=== PATIENT | male | born 1985 | race Caucasian/White ===

== ENCOUNTER 2020-06-29 08:28 | Emergency (ER) | payer SELFPAY ==
[2020-06-29 08:34] VITALS: BP 161/90; PULSE 94; RESP 20; TEMP 36.8; O2SAT 96
--- NOTE | 2020-06-29 08:40 | ED.GENADUL_ITS ---
Discharge Plan Disposition Patient Disposition: HOME Condition: Stable Discharge Details Chief Complaint: Laceration Clinical Impression: Finger fracture, left, Laceration of finger of left hand Primary Care Provider: José Manuel Kinney ED Provider: Jose Felipe Home Meds and New Rx's Prescriptions: New cephalexin 500 mg capsule 500 mg PO TID 3 Days Qty: 9 RF: 0 Continued citalopram 20 mg tablet 20 mg PO DAILY RF: 0 omeprazole 20 mg Tablet,Delayed Release (Dr/Ec) 20 mg PO DAILY RF: 0 Discharge Instructions Instructions: Finger Fracture (ED), Finger Laceration (ED) Additional Instructions: Keep hand elevated above the level of the heart to reduce pain and swelling. Leave dressing and splint in place until you are seen in orthopedic clinic. As we discussed your name will go on the orthopedic follow-up list. Please call the clinic at [phone] for an appointment time. Take Keflex as prescribed. May use Tylenol and/or ibuprofen as needed for pain. You may apply ice through the splint to reduce discomfort as well. Return if you develop a fever, redness, discharge from the wound or any other acute concern. Medical Decision Making 35-year-old male who had his left long finger and index finger caught under wood in a pinching fashion last night at 11 PM. He did irrigated at home and dress it, now with pain, swelling, subungual hematoma and small laceration to the volar surface of middle phalanx the left long finger. Tender overlying the distal phalanx. Read for x-ray. He has a comminuted distal phalanx fracture of the long finger. The wound was liberally irrigated, he underwent a digital block, the laceration was repaired with interrupted sutures, splinted. The subungual hematoma was trephinated. I also trephinated subungual hematoma of the index finger. We will have him follow-up in orthopedics for recheck. HPI General Mode of arrival: ambulatory . Date/Time Provider Initiated Documentation: 06/29/20 08:29 . Limitations to Documentation: no limitations . Information obtained by: patient . History of Present Illness 35 year old M presents to the emergency department with the chief complaint of Left long finger injury/laceration, described as moderate, Quality is described as du ll and constant, and is localized to the left and upper extremity. Patient reports no radiation. Patient started experiencing this hour(s) and it has been constant. No relieving factors improve symptom(s), No exacerbating factors reported . Patient notes other (No other injury, no numbness. Tetanus 5 years ago). Patient did receive the following treatments prior to arrival, none Related Data Home Medications Medication Instructions Recorded Confirmed cephalexin 500 mg PO TID 3 Days #9 cap 06/29/20 citalopram 20 mg PO DAILY 06/29/20 06/29/20 omeprazole 20 mg PO DAILY 06/29/20 06/29/20 Previous Rx's Medication Instructions Recorded cephalexin 500 mg PO TID 3 Days #9 cap 06/29/20 Allergies Allergy/AdvReac Type Severity Reaction Status Date / Time No Known Allergies Allergy Unverified 06/29/20 08:38 General Stated Complaint: Laceration AUGIE: 4 Review of Systems Narrative: No other injury. No numbness or tingling. 4 systems reviewed and otherwise negative [facility] Social History Smoking/Tobacco Use Status: Current every day Tobacco Type: smokeless tobacco Alcohol Intake: never Drug use: Never Substance use type: does not use Do you feel safe at home: Yes Do you feel safe in your relationship?: Yes Exam Narrative Exam Narrative: GEN: awake, alert, oriented 3. Pleasant, well groomed, interactive. HEAD: Normocephalic, atraumatic EXT: Full ROM, left long finger with palmar laceration approximately 2 cm, obliquely oriented, overlying middle phalanx. Long finger subungual hematoma and distal swelling with ecchymosis. Capillary refill is approximately 2 seconds and sensation is intact. Small subungual hematoma on left index finger. Neuro: Grossly normal neurologic exam, conversant, interactive. Psych: Speech fluent, thoughts congruent, affect normal Course Vital Signs Vital signs: Vital Signs Temperature 36.8 C 06/29/20 08:34 Pulse 94 H 06/29/20 08:34 Respiratory Rate 20 06/29/20 08:34 Blood Pressure 161/90 H 06/29/20 08:34 Pulse Oximetry 96 06/29/20 08:34 Temperature 36.8 C 06/29/20 08:34 Temperature Source Skin 06/29/20 08:34 Pulse 94 H 06/29/20 08:34 Respiratory Rate 20 06/29/20 08:34 Blood Pressure 161/90 H 06/29/20 08:34 Blood Pressure Position Sitting 06/29/20 08:34 Pulse Oximetry 96 06/29/20 08:34 Oxygen Delivery Method Room Air 06/29/20 08:34 Oxygen Flow Rate 0 06/29/20 08:34 Pain Level 4 06/29/20 08:34 Procedures Laceration Laceration 1: Site: hand Side (If applicable): left Size (cm): 2.5 Description: irregular Depth: simple, single layer Local Anesthetic: Lidocaine 1% Pre-repair: wound explored, irrigated extensively and deep structures intact Skin layer closed with: nylon Size (cm): 4-0 Number of sutures: 5 Nail Trephination Time out: Yes Location (finger): left, index and middle Method of drainage: nail cautery
--- NOTE | 2020-06-29 08:55 | DI.RAD_ITS ---
EXAM: XR FINGER LT MIDDLE CLINICAL HISTORY: palmar trauma, pain, lac TECHNIQUE: COMPARISON: No exams were available for comparison FINDINGS: Three views were obtained. There is severely comminuted fracture of the distal phalanx of the middle finger which extends through the proximal articular surface. There is moderate displacement. No ot her fracture seen. IMPRESSION:
--- NOTE | 2020-06-29 09:03 | DI.VRAD_ITS ---
PROCEDURE INFORMATION: Exam: XR Left Finger(s) Exam date and time: 06/29/2020 8:56 AM Age: 35 years old Clinical indication: Pain; Finger(s); Patient HX: Left middle finger trauma, lac, palmar trauma. TECHNIQUE: Imaging protocol: XR Left fingers. Views: Minimum 2 views. COMPARISON: No relevant prior studies available. FINDINGS: Comminuted fracture of the distal phalanx of the 3rd digit. Some of the fracture components extend into the distal interphalangeal joint. Markedly displaced volar fracture fragment. No other fractures are visualized. Soft tissue swelling about the distal 3rd digit. IMPRESSION: Comminuted fracture of the distal phalanx of the 3rd digit. Some of the fracture components extend into the distal interphalangeal joint. Markedly displaced volar fracture fragment. Dictated and Authenticated by: Brandon Fay MD. Ordering:NITA Garcia MD
[2020-06-29] MEDS: Cephalexin 500 MG CAP PO (09:28)
== END 2020-06-29 09:32 | disposition home or self-care (01) ==
PROVIDERS: Emergency Provider Emergency Medicine; PCP Nurse Practitioner Family
DX: S67.193A Crushing injury of left middle finger, initial encounter (principal); S62.633A Displaced fracture of distal phalanx of left middle finger, initial encounter for closed fracture; S61.213A Laceration without foreign body of left middle finger without damage to nail, initial encounter; S60.122A Contusion of left index finger with damage to nail, initial encounter; W23.0XXA Caught, crushed, jammed, or pinched between moving objects, initial encounter
CPT/HCPCS: 11740; 12001; 26750; 73140

== ENCOUNTER 2020-06-29 13:35 | Emergency (ER) | payer SELFPAY ==
[2020-06-29 13:40] VITALS: BP 115/61; PULSE 87; RESP 18; TEMP 37.4; O2SAT 98
--- NOTE | 2020-06-29 13:47 | ED.GENADUL_ITS ---
Discharge Plan Disposition Patient Disposition: HOME Condition: Good Discharge Details Chief Complaint: Orthopedic Clinical Impression: Ankle sprain Primary Care Provider: José Maunel Kinney ED Provider: Victoria Diaz Home Meds and New Rx's Prescriptions: Continued citalopram 20 mg tablet 20 mg PO DAILY RF: 0 omeprazole 20 mg Tablet,Delayed Release (Dr/Ec) 20 mg PO DAILY RF: 0 cephalexin 500 mg capsule 500 mg PO TID 3 Days Qty: 9 RF: 0 Discharge Instructions Instructions: Ankle Sprain (ED) Additional Instructions: Encourage rest, ice, elevation. Tylenol and ibuprofen as needed for discomfort. Please continue with ankle brace for at least the next 2 weeks. If pain persists over the next 2 weeks, please follow-up with primary care. If you develop any new or worsening symptoms please seek care urgently once again. Please avoid activities that cause increased discomfort. Referrals: José Manuel Kinney, PROMOTIONAL MODEL [Primary Care Provider] - Medical Decision Making Patient is a pleasant 35-year-old gentleman presenting today with chief complain t of left ankle pain. Patient was seen here this morning. Suffered a open finger fracture. States that he returned to work and was just walking around the job site when he tripped and injured left ankle. Spoke with internal rotation injury and is endorsing pain over the lateral malleolus at this point. Denies any numbness or tingling. Has not been able to weight-bear secondary to pain since that time. Has been icing and elevate the area. No previous surgeries or injuries to this ankle. Has been icing the area since the injury. On exam, patient does appear uncomfortable. He needs to hop into the room. Sensation is intact. No pain over the proximal fibula. No pain over the proximal fifth metatarsal. He is tender over the lateral malleolus. No pain over the Achilles tendon, no palpable defect. Patient is of swelling and ecchymosis. Will evaluate with x-ray imaging. Patient declines any analgesics at this point. He is elevating and icing. FINDINGS: Bones/joints: Normal. Soft tissues: Normal. IMPRESSION: No acute findings. Discussed these findings with the patient. Plan fit with an ankle brace. Encourage rest, ice, elevation. Tylenol and ibuprofen as needed for discomfort. Advise follow-up with primary care in 2 weeks if pain is persisting. Patient attempted to ambulate without crutches with the brace on and that he has fairly severe discomfort. We will give crutches to help with discomfort. Follow-up with primary care in 2 weeks for reevaluation if pain persist. If he develops any new or worsening symptoms he will seek care urgently once again. Questions concerns were addressed and he is in agreement this plan. HPI General Mode of arrival: wheelchair . Date/Time Provider Initiated Documentation: 06/29/20 13:47 . Limitations to Documentation: no limitations . Information obtained by: patient and RN notes reviewed . History of Present Illness 35 year old M presents to the emergency department with the chief complaint of left ankle pain, described as severe, with intensity rated at 10. Quality is described as stabbing, and is localized to the left and lower extremity. Patient reports no radiation. Patient started experiencing this minute(s) and it has been now resolved (resolves with nonweightbearing). Immobilization improves symptom(s), Movement worsens symptoms . Patient notes no other symptoms.. Patient did receive the following treatments prior to arrival, none Related Data Home Medications Medication Instructions Recorded Confirmed cephalexin 500 mg PO TID 3 Days #9 cap 06/29/20 06/29/20 citalopram 20 mg PO DAILY 06/29/20 06/29/20 omeprazole 20 mg PO DAILY 06/29/20 06/29/20 Previous Rx's Medication Instructions Recorded cephalexin 500 mg PO TID 3 Days #9 cap 06/29/20 Allergies Allergy/AdvReac Type Severity Reaction Status Date / Time No Known Allergies Allergy Unverified 06/29/20 08:38 General Stated Complaint: Orthopedic AUGIE: 4 Review of Systems Constitutional Constitutional: Reports as per HPI, Denies chills, Denies fever(s), Denies headache(s) and Denies weakness ENT Ears, Nose, Mouth, and Throat: Denies headache(s) Cardiovascular Cardiovascular: Reports as per HPI Respiratory Respiratory: Reports as per HPI and Denies cough Musculoskeletal Musculoskeletal: Reports as per HPI and Denies tingling Integumentary/Breasts Skin/Breast: Reports as per HPI, Denies rash and Denies wounds Neurologic Neurologic: Reports as per HPI, Denies headache(s), Denies tingling, Denies paresthesias and Denies weakness [facility] Social History Smoking/Tobacco Use Status: Current every day Tobacco Type: smokeless tobacco Alcohol Intake: never Drug use: Never Substance use type: does not use Do you feel safe at home: Yes Do you feel safe in your relationship?: Yes Exam Const General: cooperative, healthy appearing, uncomfortable, no acute distress, well developed and well groomed Nutritional Appearance: well nourished and overweight Orientation: alert and awake Resp Effort & Inspection: normal respiratory effort, able to speak in complete sentences and no respiratory distress Cardio Rate: regular rate Rhythm: regular rhythm Skin General skin exam: no rashes or lesions noted Lesions: no lesions Rashes: no rashes Trauma: no lacerations or abrasions Neuro General: patient alert and patient awake Cognition: normal cognition Speech: speech normal Gait: antalgic (hops into the room) Motor: muscle tone normal throughout Sensory Exam: no sensory deficits noted Extrem General: capillary refill normal and abnormal gait Right lower extremity: full ROM, normal capillary refill, knee Details: normal to inspection; no tenderness (no pain over proximal fibula), lower leg Details: normal to inspection; no tenderness, no localized swelling, no palpable cords and no ecchymosis, ankle Details: tenderness Location: of the lateral malleolus, swelling Details: laterally, normal ROM and ecchymosis (inferior to lateral malleolus); no unusual warmth, no abrasions, no lacerations, no crepitus and achilles tendon exam normal and foot Details: normal capillary refill, toes with normal ROM, no edema, vascular exam Details: dorsalis pedis pulse present, posterior tibial pulse present and normal capillary refill and motor-sensory exam Details: light-touch normal; no tenderness, no unusual warmth, no ecchymosis and no crepitus; abnormal to inspection Psych Appearance: grossly normal and well kempt Mental Status: mental status grossly normal Speech and Movement: speech and movement normal Course Vital Signs Vital signs: Pain Level 10 06/29/20 13:40 Comment 06/29/20 13:40
--- NOTE | 2020-06-29 14:08 | DI.RAD_ITS ---
EXAM: XR ANKLE LT COMPLETE CLINICAL HISTORY: lateral pain after rotational injury TECHNIQUE: COMPARISON: No exams were available for comparison FINDINGS: Three views were obtained. The ankle mortise is well maintained. There are small osteophytes associ ated with tibiotalar and talofibular joints. There is a small osteophyte at the Achilles attachment on the calcaneus. There is no evidence of acute fracture. IMPRESSION:
--- NOTE | 2020-06-29 14:30 | DI.VRAD_ITS ---
PROCEDURE INFORMATION: Exam: XR Left Ankle Exam date and time: 06/29/2020 2:06 PM Age: 35 years old Clinical indication: Patient HX: Left ankle pain. TECHNIQUE: Imaging protocol: XR Left ankle. Views: 3 or more views. COMPARISON: No relevant prior studies available. FINDINGS: Bones/joints: Normal. Soft tissues: Normal. IMPRESSION: No acute findings. Dictated and Authenticated by: Brandon Fay MD. Ordering:JAYLA Kessler MD
== END 2020-06-29 14:50 | disposition home or self-care (01) ==
PROVIDERS: Emergency Provider Physician Assistant; PCP Nurse Practitioner Family
DX: S93.402A Sprain of unspecified ligament of left ankle, initial encounter (principal); X50.9XXA Other and unspecified overexertion or strenuous movements or postures, initial encounter
CPT/HCPCS: 29515; 99283; 73610; E0114; L1902

== ENCOUNTER 2020-07-04 08:00 | Outpatient (REF) | payer SELFPAY ==
[2020-07-04 14:21] LABS: HCT 44.3 % (40.0-50.0); HGB 14.5 g/dL (13.5-17.5); MCH 27.3 pg (27.0-33.0); MCHC 32.7 % (32.0-36.0); MCV 83.4 fL (80-95); MPV 9.6 fL (8.0-11.0); Platelet Count 301 10^3/uL (130-400); RBC 5.31 10^6/uL (4.36-5.78); RDW 12.2 % (11.8-14.1); RDW-SD 37.1 fL; WBC 7.41 10^3/uL (4.4-10.8)
[2020-07-04 14:29] LABS: ALT 41 U/L (16-63); AST 19 U/L (15-37); Albumin 3.9 g/dL (3.4-5.0); Alkaline Phosphatase 78 U/L (46-116); Anion Gap 8.7 mmol/L (3-11); BUN 18 mg/dL (7-18); Bilirubin, Total 0.4 mg/dL (0.2-1.0); CO2 29.3 mmol/L (21.0-32.0); CREATININE 1.03 mg/dL (0.70-1.30); Calcium 9.6 mg/dL (8.5-10.1); Calculated LDL 108 mg/dL (<100); Chloride 103 mmol/L (98-107); Cholesterol 173 mg/dL (<200); Glucose 97 mg/dL (74-106); HDL Cholesterol 25 mg/dL (40-60); Potassium 4.6 mmol/L (3.5-5.1); Sodium 141 mmol/L (136-145); Total Protein 7.5 g/dL (6.4-8.2); Triglyceride 202 mg/dL (<150)
== END 2020-07-04 08:20 ==
LOC: NCHCN 08:00
PROVIDERS: PCP Nurse Practitioner Family; Visit Provider Nurse Practitioner Family
DX: Z00.00 Encounter for general adult medical examination without abnormal findings (principal)
CPT/HCPCS: 80053; 80061; 85027

== ENCOUNTER 2021-05-22 10:40 | Emergency (ER) | payer SELFPAY ==
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
[2021-05-22 10:45] VITALS: BP 129/78; PULSE 78; RESP 20; TEMP 36.8; O2SAT 96
[2021-05-22] MEDS: Normal Saline 1,000 ML 1000 ML IV (11:25)
[2021-05-22] MEDS: Normal Saline Flush 10 ML SYR IVP (11:25)
[2021-05-22] MEDS: Ketorolac 30 MG/ML VIAL IVP (11:26)
[2021-05-22 11:35] LABS: Abs Immature Grans 0.02 10^3/uL (0.0-0.06); Absolute Basophil Count 0.04 10^3/uL (0.0-0.2); Absolute Eosinophil Count 0.06 10^3/uL (0.0-0.7); Absolute Lymphocyte Count 1.28 10^3/uL (1.2-3.4); Absolute Neutrophil Count 9.41 10^3/uL (1.2-6.7); Basophils % 0.4; Eosinophils % 0.5; HCT 42.5 % (40.0-50.0); Immature Grans % 0.2; Lymphocytes % 11.4; MCH 27.4 pg (27.0-33.0); MCHC 32.9 % (32.0-36.0); MCV 83.2 fL (80-95); MPV 9.4 fL (8.0-11.0); Monocytes % 3.6; Neutrophils % 83.9; Nucleated RBC 0 %; Platelet Count 274 10^3/uL (130-400); RBC 5.11 10^6/uL (4.36-5.78); RDW 12.1 % (11.8-14.1); RDW-SD 36.8 fL; WBC 11.21 10^3/uL (4.4-10.8)
[2021-05-22] MEDS: ACETAMINOPHEN 1,000 MG/100 ML BTL 400 MG IVPB (11:53)
[2021-05-22 11:57] LABS: ALT 37 U/L (16-63); AST 24 U/L (15-37); Albumin 3.9 g/dL (3.4-5.0); Alkaline Phosphatase 71 U/L (46-116); Anion Gap 7.4 mmol/L (3-11); BUN 17 mg/dL (7-18); Bilirubin, Total 0.4 mg/dL (0.2-1.0); CO2 29.6 mmol/L (21.0-32.0); CREATININE 0.9 mg/dL (0.70-1.30); Chloride 104 mmol/L (98-107); Glucose 102 mg/dL (74-106); Lipase 70 U/L (73-393); Potassium 4.3 mmol/L (3.5-5.1); Sodium 141 mmol/L (136-145); Total Protein 7.5 g/dL (6.4-8.2)
[2021-05-22 13:58] VITALS: BP 129/78; PULSE 78; RESP 20; TEMP 36.8; O2SAT 96
== END 2021-05-22 14:00 | disposition home or self-care (01) ==
PROVIDERS: Emergency Provider Physician Assistant; PCP Nurse Practitioner Family
DX: R11.10 Vomiting, unspecified (principal)
CPT/HCPCS: 80053; 83690; 96361; 96365; 96368; 96375; 99284; 85025; 99283; J0131; J1885

== ENCOUNTER 2025-03-14 08:17 | Emergency (ER) | payer SELFPAY ==
[2025-03-14 08:20] VITALS: BP 156/77; PULSE 103; RESP 22; TEMP 38.1; O2SAT 97
--- NOTE | 2025-03-14 08:30 | DI.RAD_ITS ---
Exam(s) XR CHEST 2V PA LATERAL EXAM: XR CHEST 2V PA LATERAL CLINICAL HISTORY: cough, crackles RLL. TECHNIQUE: 2D digital imaging was performed. COMPARISON: No exams were available for comparison FINDINGS: 2 views: Heart size is normal. The mediastinum is not widened. Lungs are clear. No infiltrates nor pleural effusions. IMPRESSION: No acute pulmonary findings. DATA REPOSITORY: RADIATION DOSE DELIVERED:
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
[2025-03-14] MEDS: Acetaminophen 500 MG TAB 1000 MG PO (08:41)
[2025-03-14] MEDS: Ondansetron O.D.T. 4 MG TABEF PO (08:41)
[2025-03-14] MEDS: Ibuprofen 600 MG TAB PO (08:41)
[2025-03-14 09:09] VITALS: TEMP 39.4
[2025-03-14] MEDS: Amoxicillin 500 MG CAP 1000 MG PO (09:30)
[2025-03-14 09:31] VITALS: TEMP 39.4
[2025-03-14 09:43] VITALS: BP 120/57; PULSE 90; RESP 20; TEMP 37.2; O2SAT 96
[2025-03-14 10:34] VITALS: BP 140/79; PULSE 89; RESP 18; TEMP 37.2; O2SAT 93
== END 2025-03-14 10:35 | disposition home or self-care (01) ==
PROVIDERS: Emergency Provider Physician Assistant; PCP Nurse Practitioner Family
DX: J18.9 Pneumonia, unspecified organism (principal); F17.290 Nicotine dependence, other tobacco product, uncomplicated
CPT/HCPCS: 87426; 99284; 71046

== ENCOUNTER 2025-08-15 16:05 | Outpatient (REF) | payer SELFPAY ==
[2025-08-15 15:25] LABS: Abs Immature Grans 0.02 10^3/uL (0.0-0.06); HCT 42.0 % (40.0-50.0); HGB 13.6 g/dL (13.5-17.5); Immature Grans % 0.3 %; MCH 27.0 pg (27.0-33.0); MCHC 32.4 % (32.0-36.0); MCV 84 fL (80-95); MPV 9.5 fL (8.0-11.0); Platelet Count 287 10^3/uL (130-400); RBC 5.03 10^6/uL (4.36-5.78); RDW 12.1 % (11.8-14.1); RDW-SD 36.2 fL; WBC 6.58 10^3/uL (4.4-10.8)
[2025-08-15 16:21] LABS: ALT 33 U/L (16-63); AST 21 U/L (15-37); Albumin 4.1 g/dL (3.4-5.0); Alkaline Phosphatase 70 U/L (46-116); Anion Gap 8.7 mmol/L (3-11); BUN 15 mg/dL (7-18); Bilirubin, Total 0.6 mg/dL (0.2-1.0); CO2 30.3 mmol/L (21.0-32.0); Calcium 9.3 mg/dL (8.5-10.1); Chloride 103 mmol/L (98-107); Estimated GFR 110.73 (mL/min/1.73m2); Glucose 94 mg/dL (74-106); Potassium 4.0 mmol/L (3.5-5.1); Sodium 142 mmol/L (136-145); TSH (W/Ref FT4) 0.96 uIU/mL (0.36-3.74); Total Protein 7.2 g/dL (6.4-8.2)
== END 2025-08-15 16:06 | disposition home or self-care (01) ==
LOC: NCHCN 16:05
PROVIDERS: PCP Nurse Practitioner Family; Visit Provider Student in an Organized Health Care Education/Training Program
DX: F41.9 Anxiety disorder, unspecified (principal)
CPT/HCPCS: 80053; 84443; 85025

== ENCOUNTER 2025-10-03 16:24 | Outpatient (REF) | payer SELFPAY ==
[2025-10-03 16:01] LABS: Cholesterol 198 mg/dL (<200); HDL Cholesterol 37 mg/dL (>or=40)
== END 2025-10-03 16:25 | disposition home or self-care (01) ==
LOC: NCHCN 16:24
PROVIDERS: PCP Nurse Practitioner Family; Visit Provider Student in an Organized Health Care Education/Training Program
DX: Z13.220 Encounter for screening for lipoid disorders (principal)
CPT/HCPCS: 80061